=== PATIENT | male | born 2005 | race Caucasian/White ===

== ENCOUNTER 2025-05-15 12:07 | Emergency (ER) | payer MEDICAID, SELFPAY ==
[2025-05-15 12:13] VITALS: BP 97/53; PULSE 54; RESP 18; TEMP 36.7; O2SAT 98; BMI 17.9
--- NOTE | 2025-05-15 12:42 | XR_ITS ---
WS: [id number] Exam: XR chest 1V portable [id number] Date/Time of Exam: 05/15/2025 12:42 PM Reason For Exam: dyspnea/cough No priors. Lungs are fully expanded and clear. Normal cardiomediastinal silhouette and regional bony elements. No pleural effusions. XR/XR chest 1V portable [id number] IMPRESSION: 1. Negative chest.
[2025-05-15 13:39] LABS: Hematocrit 42.2 % (37-53); Hemoglobin 14.50 g/dL (13.2-15.6); Mean Corpuscular HGB Conc 34.4 g/dL (30-55); Mean Corpuscular Hemoglobin 30.5 pg (27-33); Mean Corpuscular Volume 88.8 fl (82-101); Nucleated Red Blood Cells % 0 %; Platelet Count 274 10^3/cmm (157-399); Red Blood Count 4.75 10^6/uL (3.85-5.65); White Blood Count 6.61 10^3/uL (4.5-13.0)
--- NOTE | 2025-05-15 13:45 | ED_ITS ---
HPI - Chest Pain 2 General: Chief Complaint: Chest Pain Stated Complaint: pain in lungs and chest History of Present Illness: Patient is a 20-year-old gentleman without prior medical history without prior medical history, however trying to discover his issues with on and off shortness of breath with primary, comes in with 3-4 days of congestion, difficulty breathing, and now for more of a chest wall pain. Patient denies fever, admits to cough, denies sick exposure, denies URI symptoms, sore throat, n/or v. Associated symptoms: Reports dyspnea; Deny abdominal pain, fever(s), nausea, palpitations or vomiting Related Data Home Medications ?Medication ?Instructions ?Recorded ?Confirmed atomoxetine 40 mg capsule 40 mg PO DAILY 05/15/2505/06 (Strattera) omeprazole 20 mg capsule,delayed 20 mg PO DAILY 05/15/25 release Previous Rx's ?Medication ?Instructions ?Recorded albuterol sulfate 90 mcg/actuation 2 inh inhalation Q6 H PRN shortness 05/15/25 aerosol inhaler (Ventolin HFA) of breath or wheezing # 8.5 grams prednisone 10 mg tablets in a dose 10 mg PO DIRECTE D #27 ea 05/15/25 pack Allergies Allergy/AdvReac Type Severity Reaction Status Date / Time No Known Allergies Allergy Verified 05/15/25 12:14 Review of Systems 2 Const: Denies: fever(s) or chills Eyes: Denies: change in vision or blurry vision ENMT: Denies: throat pain, mouth pain, ear or mastoid pain, change in hearing or nasal congestion Card: Reports: chest pain; Denies: palpitations or edema Resp: Reports: dyspnea and non-productive cough GI: Denies: abdominal pain, nausea or vomiting : Denies: flank pain or difficulty urinating Musc: Denies: neck pain, back pain or extremity pain Skin/Breast: Denies: rash or pruritus Neuro: Denies: headache(s), numbness in extremities or weakness in extremities Psych: Denies: anxiety or depression Physical Exam 2 Const: COMMON NORMALS: no acute distress, average body habitus and patient oriented x3 HENMT: COMMON NORMALS: normocephalic and atraumatic HEAD & SCALP: n ormocephalic and atraumatic Chest: COMMONS NORMALS: normal inspection of the chest and normal palpation of entire chest wall Resp: COMMON NORMALS: normal respiratory effort EFFORT & INSPECTION: Yes able to speak in complete sentences AUSCULTATION: wheezes inspiratory wheezes and upper bilaterally and diminished lung sounds bilateral and diffuse Cardio: COMMON NORMALS: regular rate and regular rhythm RATE: regular rate RHYTHM: regular rhythm GI: COMMON NORMALS: Normal to inspection, nondistended, normoactive bowel sounds present, Soft to palpation and non-tender PALPATION: Yes Soft to palpation : COMMON NORMALS: Yes no CVA tenderness BLADDER/KIDNEY EXAM: Yes no CVA tenderness Back/Pelvis: COMMON NORMALS: no CVA tenderness Extremity: COMMON NORMALS: normal to inspection, full ROM and capillary refill normal Neuro: COMMON NORMALS: patient oriented x3 Psych: COMMON NORMALS: mental status grossly normal, Normal thought process present, cooperative, normal affect and speech normal SPEECH: Yes normal speech THOUGHT PROCESS: Normal thought process present Skin: COMMON NORMALS: no rashes or lesions noted and no wounds GENERAL SKIN EXAM: no rashes or lesions noted Course 2 Vital Signs: Vital signs: Vital Signs Temperature 98.1 F 05/15/25 12:13 Pulse Rate 53 L 05/15/25 14:32 Respiratory Rate 16 05/15/25 14:32 Blood Pressure 97/53 05/15/25 12:13 Pulse Oximetry 99 05/15/25 14:32 Oxygen Delivery Me thod Room Air 05/15/25 14:32 MDM - Chest Pain Medical Decision Making Patient is a 20-year-old male that relates 2 to 3 days of shortness of breath with chest tightness starting today where it is difficult to take a deep breath. He is speaking full sentences however has ongoing wheezes, nonproductive cough. No upper respiratory symptoms, or sick contact. Chest x-ray is negative for acute infiltrate. Symptoms, exam consistent with acute bronchitis. At his age, he does appear to have somewhat longer lungs, and has ensured me he has follow- up with primary to try to get to the bottom of his recent shortness of breath issues, and has follow up. Will attempt an aerosol treatment see if this improves, prednisone, and albuterol inhaler. Antibiotics are not indicated at this time. Differential Diagnosis Unlikely acute respiratory failure or acute myocardial infarction Medical Records I reviewed the patient's medical records. Lab Data I reviewed the patient's lab results. 05/15/25 13:33 05/15/25 13:33 Radiology Impressions Chest X-Ray 05/15/25 12:42 IMPRESSION: 1. Negative chest. Laboratory Results WBC 6.61 10^3/uL (4.5-13.0) 05/15/25 13:33 RBC 4.75 10^6/uL (3.85-5.65) 05/15/25 13:33 Hgb 14.50 g/dL (13.2-15.6) 05/15/25 13:33 Hct 42.2 % (37-53) 05/15/25 13:33 MCV 88.8 fl (82-101) 05/15/25 13:33 MCH 30.5 pg (27-33) 05/15/25 13:33 MCHC 34.4 g/dL (30-55) 05/15/25 13:33 RDW 12.3 % (12.1-15.1) 05/15/25 13:33 Plt Count 274 10^3/cmm (157-399) 05/15/25 13:33 MPV 9.2 fL (7.4-10.4) 05/15/25 13:33 Neut % (Auto) 61.4 % 05/15/25 13:33 Lymph % (Auto) 26.2 % 05/15/25 13:33 [place] % (Auto) 8.8 % 05/15/25 13:33 Eos % (Auto) 2.3 % 05/15/25 13:33 Baso % (Auto) 1.1 % 05/15/25 13:33 Neut # (Auto) 4.07 10^3/uL (1.8-8.0) 05/15/25 13:33 Lymph # (Auto) 1.7 10^3/uL (1.5-6.5) 05/15/25 13:33 [place] # (Auto) 0.6 10^3/uL (0.2-0.9) 05/15/25 13:33 Eos # (Auto) 0.2 10^3/uL (0.0-0.8) 05/15/25 13:33 Baso # (Auto) 0.1 10^3/uL (0.0-0.1) 05/15/25 13:33 Nucleated RBC % (auto) 0 % 05/15/25 13:33 Nucleated RBCs # 0.0 /100WBC 05/15/25 13:33 Sodium 142 mmol/L (136-145) 05/15/25 13:33 Potassium 4.0 mmol/L (3.5-5.1) 05/15/25 13:33 Chloride 104 mmol/L (98-107) 05/15/25 13:33 Carbon Dioxide 27 mmol/L (22-29) 05/15/25 13:33 Anion Gap 15.0 (5-19) 05/15/25 13:33 BUN 11 mg/dL (6-20) 05/15/25 13:33 Creatinine 0.9 mg/dL (0.7-1.2) 05/15/25 13:33 GFR Calculation 107.6 mL/min (90-130) 05/15/25 13:33 Glucose 91 mg/dL (65-115) 05/15/25 13:33 Calculated Osmolality 293 mOsm/kg (285-295) 05/15/25 13:33 Calcium 9.5 mg/dL (8.5-10.5) 05/15/25 13:33 Total Bilirubin 0.3 mg/dL (0.15-1.2) 05/15/25 13:33 AST 24 U/L (0-40) 05/15/25 13:33 ALT 15 U/L (0-41) 05/15/25 13:33 Alkaline Phosphatase 54 U/L (40-130) 05/15/25 13:33 Total Protein 7.5 g/dL (6.6-8.7) 05/15/25 13:33 Albumin 4.8 g/dL (3.5-5.2) 05/15/25 13:33 Globulin 2.7 g/dL (1.3-4.6) 05/15/25 13:33 All radiology interpretation(s) finalized by discharge ED provider radiology interpretation(s): no acute Discharge Plan Discharge Patient Disposition: Home Clinical Impression: Bronchitis Condition: Stable Prescriptions: New prednisone 10 mg tablets,dose pack 10 mg PO DIRECTED Qty: 27 0RF Rx Instructions: Take 4 x 3 days, take 3 x 3 days, take 2 x 2 days, take 1 x 2 days. albuterol sulfate [Ventolin HFA] 90 mcg/actuation HFA aerosol inhaler 2 inh inhalation Q6H PRN (Reason: shortness of breath or wheezing) Qty: 8.5 0RF No Action omeprazole 20 mg capsule,delayed release(DR/EC) 20 mg PO DAILY atomoxetine [Strattera] 40 mg capsule 40 mg PO DAILY Discharge Orders: Discharge ED (Routine); Ordered 05/15/25 Ordered By: Shauna Brown Discharge Diet: Advance as tolerated Discharge Activity: Resume usual activity Patient Instructions: Acute Bronchitis (ED), Patient Portal & Joyce Instructions Activity Restrictions/Additional Instructions: Follow-up with your primary care physician Return to ED for worsening shortness of breath, fever, chest pain It is importantly follow-up with your primary care physician regarding today's visit. Please call today to make an appointment for follow-up Take medication as prescribed in the morning. Stand Alone Forms: Work/School Release Print Language: Upper Sorbian Coding Level of Care Code ED Gynaecological Oncologist for Maxx Liang
[2025-05-15 13:55] LABS: Alanine Aminotransferase 15 U/L (0-41); Albumin Level 4.8 g/dL (3.5-5.2); Alkaline Phosphatase 54 U/L (40-130); Anion Gap 15.0 (5-19); Aspartate Amino Transferase 24 U/L (0-40); Blood Urea Nitrogen 11 mg/dL (6-20); Calcium 9.5 mg/dL (8.5-10.5); Carbon Dioxide 27 mmol/L (22-29); Chloride 104 mmol/L (98-107); Creatinine Clr Calc Pharmacy 114.2389; Globulin 2.7 g/dL (1.3-4.6); Glucose 91 mg/dL (65-115); Osmolality Calculated 293 mOsm/kg (285-295); Potassium 4.0 mmol/L (3.5-5.1); Sodium 142 mmol/L (136-145); Total Protein 7.5 g/dL (6.6-8.7)
[2025-05-15 14:32] VITALS: PULSE 53; RESP 16; O2SAT 99
[2025-05-15 15:47] VITALS: BP 101/62; PULSE 61; RESP 18; O2SAT 99
== END 2025-05-15 15:48 | disposition home or self-care (01) ==
PROVIDERS: Family Medicine; Emergency Provider Physician Assistant
DX: J40 Bronchitis, not specified as acute or chronic (principal)
CPT/HCPCS: 36415; 71045; 80053; 85025; 94640; 99285; J9999